=== PATIENT | male | born 1970 | race Caucasian/White ===

== ENCOUNTER 2022-07-08 13:44 | Outpatient (CLI) | payer OTHER | END 2022-07-08 13:45 | disposition home or self-care (01) | LOC: BICRAD 13:44 | PROVIDERS: ATTEND Preventive Medicine Occupational Medicine | DX: M54.50 Low back pain, unspecified (principal); M50.90 Cervical disc disorder, unspecified, unspecified cervical region; M51.16 Intervertebral disc disorders with radiculopathy, lumbar region; R10.2 Pelvic and perineal pain; M47.816 Spondylosis without myelopathy or radiculopathy, lumbar region; M47.812 Spondylosis without myelopathy or radiculopathy, cervical region | CPT/HCPCS: 72040; 72100 ==